=== PATIENT | female | born 1970 | race Hispanic/Latino ===

== ENCOUNTER 2023-10-11 13:59 | Outpatient (CLI) | payer OTHER | END 2023-10-11 14:00 | disposition home or self-care (01) | LOC: BICMRI 13:59 | PROVIDERS: ATTEND Nurse Practitioner Family | DX: G45.9 Transient cerebral ischemic attack, unspecified (principal); R90.82 White matter disease, unspecified; G98.8 Other disorders of nervous system | CPT/HCPCS: 70553 ==